=== PATIENT | female | born 1955 | race Two or more races ===

== ENCOUNTER 2024-10-31 19:57 | Emergency (ER) | payer SELFPAY ==
[~2024-10-31] VITALS: Ht 154.9 cm; Wt 66.8 kg
--- NOTE | 2024-10-31 20:25 | ED.PDOC ---
History of Present Illness HPI Comments 69-year-old female with PMHx HTN presents with a chief complaint of high blood pressure. Patient states that at home her BP reading was 187/97 and has not taken her Losartan for 3 weeks due to running out of medication. Patient mentions that she is visiting from [place] and normally gets her medications from the pharmacy there. Patients BP reading in triage was 165/69 and states that she has a slight headache. Patient mentions that she took an 81mg ASA at home prior to coming to the ER. Time Seen by MD: 20:06 Reviewed Notes: Medications, Allergies Allergies: Coded Allergies: NO KNOWN ALLERGIES (Unverified , 10/31/24) Information Source: Patient Mode of Arrival: Ambulatory Severity: Moderate Timing: Hours Duration: Since onset Prehospital treatment: None Vital Signs Vital Signs Date Time Temp Pulse Resp B/P (MAP) Pulse Ox O2 Delivery O2 Flow Rate FiO2 10/31/24 20:27 80 10/31/24 20:10 98.9 22 165/69 (101) 100 98.9 Physical Exam General: Awake, alert and oriented. No acute distress. Skin: Skin in warm, dry and intact. Appropriate color for ethnicity. HEENT: The head is normocephalic and atraumatic. Conjunctivae are clear without exudates or hemorrhage. Sclera is non-icteric. EOM are intact. No signs of nystagmus. Eyelids are normal in appearance without swelling or lesions. Oral mucosa is pink and moist Neck: The neck is supple with normal range of motion. No JVD. Cardiac: Heart rate and rhythm are normal. No murmurs, gallops, or rubs are auscultated. Respiratory: No signs of respiratory distress. Lung sounds are clear in all lobes bilaterally without rales, rhonchi, or wheezes. Abdominal: Abdomen is soft, non-tender without distention. Bowel sounds are present and normoactive in all four quadrants. Extremities: Upper and lower extremities are atraumatic in appearance without deformity or edema. Neurological: The patient is awake, alert and oriented to person, place, and time with normal speech. Speech is clear. There is no facial asymmetry. Normal strength in upper and lower extremities. Normal gait. Psychiatric: Anxious, tearful affect. Review of Systems: REVIEW OF SYSTEMS: No fever, no chills, or fatigue HEENT: No sore throat, no earache, no congestion, no neck pain. Cardiac: No chest pain. No palpitations. Lungs: No shortness of breath, no cough. GI: No nausea, no vomiting, no diarrhea, no constipation, no abdominal pain : No dysuria, frequency, or urgency. No hematuria. Musculoskeletal: No joint pain , no joint swelling, no extremity edema. Skin: No rash, no itching. Neuro: Positive headache headache, no dizziness, no weakness Past Medical History PAST MEDICAL HISTORY: HTN Surgical History: Denies all surgeries [employer] History: Denies all [employer] Hx Family History Family History: Reviewed,noncontributory to illness Social History Smoker: Non-Smoker Alcohol: Denies ETOH Use Drugs: Denies Drug Use Lives In: Home Was a procedure done? Was a procedure done?: No EKG EKG : Comments Rate 80 Sinus rhythm QTC 435 HI interval 152 QRS axis 72 No STEMI Differential Dx Considerations may include: Differential diagnoses considered include but are not limited to temporal arteritis, acute angle closure glaucoma, encephalitis, bacterial meningitis, carbon monoxide poisoning, posttraumatic headache, SAH, subdural hematoma, cervical artery dissection, venous sinus thrombosis, CVA, migraine headache, cluster headache, tension headache, TMJ disorder, frontal sinusitis, cervical spondylosis, intracranial mass, pituitary apoplexy. X-Ray, Labs, Meds, VS Vital Signs Date Time Temp Pulse Resp B/P (MAP) Pulse Ox O2 Delivery O2 Flow Rate FiO2 10/31/24 20:27 80 10/31/24 20:10 98.9 74 22 165/69 (101) 100 98.9 Lab Test 10/31/24 20:34 Range/Units White Blood Count 7.5 4.4-10.8 10^3/uL Red Blood Count 4.94 4.0-5.20 10^6/uL Hemoglobin 14.5 12.2-16.2 g/dL Hematocrit 43.3 36.0-46.0 % Mean Corpuscular Volume 87.6 80.0-100.0 fL Mean Corpuscular Hemoglobin 29.4 28.0-32.0 pg Mean Corpuscular Hemoglobin Concent 33.5 32.0-36.0 g/dL Red Cell Distribution Width 12.9 11.8-14.3 % Platelet Count 246 140-450 10^3/uL Mean Platelet Volume 8.5 6.9-10.8 fL Neutrophils (%) (Auto) 64.2 37.0-80.0 % Lymphocytes (%) (Auto) 28.4 10.0-50.0 % Monocytes (%) (Auto) 6.2 0.0-12.0 % Eosinophils (%) (Auto) 0.7 0.0-7.0 % Basophils (%) (Auto) 0.5 0.0-2.0 % Neutrophils # (Auto) 4.8 1.6-8.6 10 ^3/uL Lymphocytes # (Auto) 2.1 0.4-5.4 10 ^3/uL Monocytes # (Auto) 0.5 0-1.3 10 ^3/uL Eosinophils # (Auto) 0.1 0-0.8 10 ^3/uL Basophils # (Auto) 0 0-0.2 10 ^3/uL Nucleated Red Blood Cells 0.0 % Sodium Level 139 136-145 mmol/L Potassium Level 4.1 3.5-5.1 mmol/L Chloride Level 106 98-107 mmol/L Carbon Dioxide Level 23 20-31 mmol/L Anion Gap 10 5-15 Blood Urea Nitrogen 15 9-23 mg/dL Creatinine 1.04 H 0.550-1.02 mg/dL Glomerular Filtration Rate Calc 58 >90 mL/min BUN/Creatinine Ratio 14.4 10.0-20.0 Serum Glucose 112 H 74-106 mg/dL Calcium Level 9.8 8.7-10.4 mg/dL Total Bilirubin 0.3 0.2-1.0 mg/dL Aspartate Amino Transferase (AST) 23 13-40 U/L Alanine Aminotransferase (ALT) 16 7-40 U/L Alkaline Phosphatase 85 46-116 U/L Troponin I High Sensitivity 7 </=34 ng/L Total Protein 7.3 5.7-8.2 g/dL Albumin 4.6 3.2-4.8 g/dL Time of 1ST Reevaluation: 20:36 Reevaluation 1ST: Unchanged Patient Education/Counseling: Need For Follow Up Family Education/Counseling: No Family Present Departure 1 Departure Time of Disposition: 22:36 Impression: Primary Impression: Headache Additional Impression: Hypertension Disposition: 01 HOME / SELF CARE / HOMELESS Condition: Stable Additional Instructions: INSTRUCCIONES DE HANNAH DE Urgencias Instrucciones: Dwaine atentamente todas las instrucciones proporcionadas en sana paquete. Aunque le hayan dado el hannah del Departamento de Emergencias, esto no significa que tenga un "certificado de buena osman". Hoy no se hyde realizado ningn diagnstico definitivo para fide sntomas. Es posible que ests en proceso de desarrollar kasia enfermedad grave. Es por eso que debe regresar al servicio de urgencias sin falta si presenta algn sntoma nuevo o que empeora (especialmente si fide sntomas incluyen dolor en el pecho, dificultad para respirar, dolor abdominal, fiebre, dolor de randolph, confusin, dificultad para asa o caminar). Tambin es muy importante que consulte a un mdico de atencin primaria dentro de los prximos 3 a 5 solis para realizar un seguimiento. Si no puede conseguir kasia ryne, regrese al servicio de urgencias para kasia nueva evaluacin. Hoy tuvo la presin arterial hannah. La presin arterial hannah sin tratamiento puede tener consecuencias graves. Sin embargo, necesita kasia ryne de seguimiento para volver a controlarla y determinar si necesita tratamiento. Programe kasia ryne con barreto mdico de cabecera para esto dentro de la prxima semana. Call to schedule an appointment with a new primary care provider. [phone] Dr. Belen Ornelas or Dr. Vernon Imer Dolor de randolph por migraa: instrucciones de cuidado Descripcin general Las migraas son dwayne de randolph punzantes y dolorosos que suelen comenzar en un lado de la randolph. Pueden causar nuseas y vmitos y hacer que el paciente se vuelva sensible a la tank, los sonidos o los olores. Sin tratamiento, las migraas pueden durar desde 4 horas hasta algunos solis. Los medicamentos pueden ayudar a prevenir las migraas o detenerlas kasia vez que hayan comenzado. Barreto mdico puede ayudarlo a encontrar los que funcionan mejor para usted. El seguimiento mdico es kasia parte fundamental de barreto tratamiento y barreto seguridad. Asegrese de programar y acudir a todas las citas, y llame a barreto mdico si tiene problemas. Tambin es kasia buena idea saber los resultados de fide pruebas y llevar kasia lista de los medicamentos que phill. Artistic Director puedes cuidarte en casa? No conduzca si hyde tomado algn analgsico recetado. Descanse en kasia habitacin tranquila y oscura hasta que desaparezca el dolor de randolph. Cierre los ojos e intente relajarse o dormir. No oralia televisin ni dwaine. Coloque un rosa hmedo y fro o kasia compresa fra sobre la lauren dolorida lottie 10 a 20 minutos cada vez. Coloque un rosa gilda entre la compresa fra y la piel. Utilice kasia toalla tibia y hmeda o kasia almohadilla trmica a temperatura baja para relajar los msculos tensos de los hombros y el marjorie. Pdale a alguien que le masajee suavemente el marjorie y los hombros. [place] fide medicamentos exactamente cory le hayan recetado. Llame a barreto mdico si timo que tiene un problema con barreto medicamento. Recibir ms detalles sobre los medicamentos especficos que le recete barreto mdico. No tome medicamentos para el dolor de randolph con demasiada frecuencia. Hable con barreto mdico si est tomando medicamentos ms de 2 solis a la semana para aliviar el dolor de randolph. Pascale demasiados analgsicos puede provocar ms dwayne de randolph. Estos se denominan dwayne de randolph por uso excesivo de medicamentos. Para prevenir las migraas Lleva un diario de tus dwayne de randolph para que puedas identificar qu los desencadena. Evitar los desencadenantes puede ayudarte a prevenirlos. Registra cundo comenz cada dolor de randolph, cunto dur y qual field manager fue. Anota cualquier otro sntoma que hayas tenido junto con el dolor de randolph, cory nuseas, luces intermitentes o manchas oscuras, o sensibilidad a la tank brillante o a los ruidos alvin. Anota si el dolor de randolph se produjo cerca de tu perodo. Haz kasia lista de todo lo que podra yee desencadenado el dolor de randolph. Los desencadenantes pueden incluir ciertos alimentos (chocolate, queso, vino) u olores, humo, tank brillante, estrs o falta de sueo. Si barreto mdico le hyde recetado medicamentos para las migraas, tmelos segn las indicaciones. Puede pascale medicamentos solo cuando le d migraa y medicamentos que tome todo el tiempo para ayudar a prevenir las migraas. Si barreto mdico le hyde recetado un medicamento para cuando le duele la randolph, tmelo ante la primera seal de migraa, a menos que le haya dado otras instrucciones. Si barreto mdico le hyde recetado medicamentos para prevenir las migraas, tmelos exactamente cory se lo indiquen. Llame a barreto mdico si timo que tiene un problema con barreto medicamento. Busque formas saludables de lidiar con el estrs. Las migraas son ms comunes lottie o inmediatamente despus de perodos estresantes. Intente encontrar formas de reducir el estrs, cory practicar la atencin plena o ejercicios de respiracin profunda. Duerma carlee y lula ejercicio, rona tenga cuidado de no esforzarse demasiado lottie el ejercicio, ya que puede provocarle dolor de randolph. Siga un horario regular para comer. Evite los alimentos y las bebidas que suelen desencadenar migraas, cory el chocolate, el alcohol (especialmente el vino tinto y el oporto), el aspartamo, el glutamato monosdico (GMS) y algunos aditivos presentes en los alimentos (cory los perritos calientes, el tocino, los embutidos, los quesos curados y los encurtidos). Limite la cafena. No tome demasiado caf, t o refrescos, rona no deje de pascale cafena de repente, ya que tambin puede provocarle migraas. No fume ni permita que otras personas fumen cerca de usted. Si necesita ayuda para dejar de fumar, hable con barreto mdico sobre programas y medicamentos para dejar de fumar. Estos pueden aumentar fide probabilidades de dejar de fumar para siempre. Si est tomando pldoras anticonceptivas o terapia hormonal, hable con barreto mdico sobre si swapna son las causas de fide migraas. Cundo debes pedir ayuda? Llame al 911 en cualquier momento en que considere que puede necesitar atencin de emergencia. Por ejemplo, llame si: Tiene sntomas de un accidente cerebrovascular, que pueden incluir: Entumecimiento repentino, parlisis o debilidad en la jamaal, el brazo o la pierna, especialmente en un solo lado del cuerpo. Cambios repentinos en la visin. Dificultad repentina para hablar. Confusin repentina o dificultad para comprender afirmaciones simples. Problemas repentinos con la marcha o el equilibrio. Un dolor de randolph repentino y cyrus que es diferente a los dwayne de randolph anteriores. Llame a barreto mdico ahora o busque atencin mdica inmediata si: Tienes fiebre y el marjorie rgido. Tu dolor de randolph empeora mucho. Preste atencin a los cambios en barreto osman y asegrese de comunicarse con barreto mdico si: Fide dwayne de randolph empeoran, ocurren con ms frecuencia o cambian de alguna manera. Tienes nuevos sntomas. Tu madie se ve alterada por tus dwayne de randolph. Por ejemplo, a menudo faltas al trabajo, a la escuela o a otras actividades. No mejoras cory esperabas Crditos para la migraa: instrucciones de cuidado Actualizado al: 3 de diciembre 2023 Autor: Personal de [employer] Junta de revisin clnica Toda la educacin de [employer] es revisada por un equipo que incluye mdicos, enfermeras, profesionales avanzados, dietistas registrados y otros profesionales de la osman. e-Prescriptions Acetaminophen (Acetaminophen) 500 Mg Tab 500 MG PO TIDPRN PRN for 5 Days, #15 TAB Prov: DAREN NOVAK MD 10/31/24 Losartan Potassium (Losartan Potassium) 25 Mg Tab 1 TAB PO DAILY for 10 Days, #10 TAB 1 Refill Prov: DAREN NOVAK MD 10/31/24 Comments 69-year-old female with a history of hypertension presents with headache. No focal neuro deficit. No complaint of chest pain or shortness of breath. EKG negative for signs of ischemia. High sensitivity troponin negative.. Presentation not suggestive of CVA, acute coronary syndrome, pulmonary embolism or aortic dissection. Patient improved at time of discharge. No hypoxia, respiratory distress or dyspnea at discharge. Patient able to ambulate without difficulty. Patient well-appearing, nontoxic. Advised prompt follow-up with PCP, return to the ED with any new, worsening or concerning symptoms. I reviewed the following notes from the pt's past medical encounters: N/A The following tests were ordered, and results were reviewed by me: (See diagnostic results section) The following test were independently interpreted by me: EKG Additional information was gathered from interviewing the following independent historians: Patient's friend at bedside. I reviewed and agreed with the following test results read by other providers: N/A I discussed treatments and results with patient Decision regarding hospitalization or escalation of hospital level of care: Risks and benefits of admission for further treatment of patient's condition was considered however due to patient's stable condition patient will be discharged to follow up closely or return to care for worsening of condition or inability to follow up. Critical Care Note Critical Care Time?: No Stability Stability form required: No Heart Score Heart Score: Heart Score Response (Comments) Value History N/A 0 EKG N/A 0 Age N/A 0 Risk Factors N/A 0 Troponin N/A 0 Total 0 I personally scribed for DAREN NOVAK MD ([email or web address]) on 10/31/24 at 20:25. Electronically submitted by Edwin Marlow ([email or web address]). DAREN NOVAK MD Oct 31, 2024 20:25
[2024-10-31 21:08] LABS: Basophils # (auto) 0 10 ^3/uL (0-0.2); Basophils % (auto) 0.5 % (0.0-2.0); Eosinophils # (auto) 0.1 10 ^3/uL (0-0.8); Eosinophils % (auto) 0.7 % (0.0-7.0); Hematocrit 43.3 % (36.0-46.0); Hemoglobin 14.5 g/dL (12.2-16.2); Lymphocytes # (auto) 2.1 10 ^3/uL (0.4-5.4); Lymphocytes % (auto) 28.4 % (10.0-50.0); Mean Corpuscular Hemoglobin 29.4 pg (28.0-32.0); Mean Corpuscular Hgb Conc. 33.5 g/dL (32.0-36.0); Mean Corpuscular Volume 87.6 fL (80.0-100.0); Monocytes # (auto) 0.5 10 ^3/uL (0-1.3); Monocytes % (auto) 6.2 % (0.0-12.0); Neutrophils # (auto) 4.8 10 ^3/uL (1.6-8.6); Neutrophils % (auto) 64.2 % (37.0-80.0); Platelet Count (auto) 246 10^3/uL (140-450); Red Blood Cells 4.94 10^6/uL (4.0-5.20); Red Cell Distribution Width 12.9 % (11.8-14.3); White Blood Cell 7.5 10^3/uL (4.4-10.8)
[2024-10-31 21:27] LABS: Alanine Aminotransferase 16 U/L (7-40); Alkaline Phosphatase 85 U/L (46-116); Calcium 9.8 mg/dL (8.7-10.4); Carbon Dioxide 23 mmol/L (20-31); Chloride 106 mmol/L (98-107)
[2024-10-31 21:28] LABS: Albumin 4.6 g/dL (3.2-4.8); Anion Gap 10 (5-15); Aspartate Aminotransferase 23 U/L (13-40); BUN/Creatinine Ratio 14.4 (10.0-20.0); Bilirubin, Total 0.3 mg/dL (0.2-1.0); Blood Urea Nitrogen 15 mg/dL (9-23); Glucose 112 mg/dL (74-106); Potassium 4.1 mmol/L (3.5-5.1); Sodium 139 mmol/L (136-145); Total Protein 7.3 g/dL (5.7-8.2)
[2024-10-31] MEDS ORDERED: LOSA-533 PO (22:37)
[2024-10-31] MEDS ORDERED: ACET500T58 PO (22:37)
[2024-11-01] MEDS: ACETAMINOPHEN 325 MG TAB PO ONE (00:21)
[2024-11-01] MEDS: LOSARTAN POTASSIUM 25 MG TAB PO ONE (00:21)
[2024-11-01 00:22] VITALS: BP 150/75; PULSE 72; RESP 18; TEMP 97.5; O2SAT 98
--- NOTE | 2024-11-01 07:56 | ECG ---
[facility] Test Date: 2024-10-31 Test Time: 20:27:12 Pat Name: CAROLYN PLUMMER Department: ED Room: Gender: F Fabric Cutter: : 1955 Requested By: DAREN NOVAK Order Number: [id number] Reading MD: James Bianchi Measurements Intervals [place] Rate: 80 P: 79 [place]: 152 QRS: 72 QRSD: 81 T: 56 QT: 377 QTc: 435 Interpretive Statements Sinus rhythm Electronically Signed On 11-01-2024 21:09:34 PDT by James Bianchi Please click the below link to view image of tracing.
== END 2024-11-01 00:22 | disposition home or self-care (01) ==
LOC: ER 19:57
DX: I10 Essential (primary) hypertension (principal); R51.9 Headache, unspecified
CPT/HCPCS: 36415; 80053; 84484; 85025; 93005